=== PATIENT | female | born 1980 | race African-American/Black ===

== ENCOUNTER 2018-10-19 01:00 | Emergency (ER) | payer SELFPAY ==
[2018-10-19] MEDS ORDERED: Dicyclomine 20 MG TAB ONE (01:22)
[2018-10-19 02:10] LABS: Pregnancy Test - Urine (BHCG) Negative (Negative)
[2018-10-19 02:11] LABS: Pregu Control Background? CLEAR/WHITE (CLR/WHITE); Pregu Control Bar Appear? YES (CONTROL BAR); Specific Gravity 1.016 (1.002-1.036)
== END 2018-10-19 03:08 | disposition home or self-care (01) ==
LOC: ERS 01:00
DX: K52.9 Noninfective gastroenteritis and colitis, unspecified (principal); E11.9 Type 2 diabetes mellitus without complications; I10 Essential (primary) hypertension; F32.9 Major depressive disorder, single episode, unspecified; Z79.899 Other long term (current) drug therapy
CPT/HCPCS: 81025; 99284